=== PATIENT | male | born 1980 | race Caucasian/White ===

== ENCOUNTER → 2017-11-04 | Outpatient (CLI) | payer BC ==
[~2017-11-04] VITALS: Ht 188 cm; Wt 97.7 kg
[2017-11-04 11:36] VITALS: BP 144/90; PULSE 71; Ht 188 cm; Wt 97.7 kg
== END | disposition home or self-care (01) ==
LOC: C.NEUR 10:20
PROVIDERS: ATTEND Internal Medicine Pulmonary Disease
DX: G47.33 Obstructive sleep apnea (adult) (pediatric) (principal); G25.81 Restless legs syndrome; F45.8 Other somatoform disorders